=== PATIENT | male | born 1960 | race Two or more races ===

== ENCOUNTER 2021-12-24 13:00 | Outpatient (CLI) | payer MEDICARE, OTHER ==
[2021-12-24] MEDS ORDERED: COLLAGENASE 5 GM TUBE UD TP ONE (13:58)
== END 2021-12-24 23:59 | disposition home or self-care (01) ==
LOC: WOU 13:00
PROVIDERS: ATTEND Specialist
DX: E11.69 Type 2 diabetes mellitus with other specified complication (principal); E11.52 Type 2 diabetes mellitus with diabetic peripheral angiopathy with gangrene; E11.22 Type 2 diabetes mellitus with diabetic chronic kidney disease; I12.0 Hypertensive chronic kidney disease with stage 5 chronic kidney disease or end stage renal disease; M86.571 Other chronic hematogenous osteomyelitis, right ankle and foot; I96 Gangrene, not elsewhere classified; N18.6 End stage renal disease; Z99.2 Dependence on renal dialysis; Z87.891 Personal history of nicotine dependence; Z79.4 Long term (current) use of insulin; Z79.82 Long term (current) use of aspirin; Z79.899 Other long term (current) drug therapy
CPT/HCPCS: 73718; G0463

== ENCOUNTER 2021-12-24 14:04 | Outpatient (CLI) | payer MEDICARE, OTHER | END 2021-12-24 23:59 | disposition home or self-care (01) | LOC: MRI 14:04 | PROVIDERS: ATTEND Specialist | DX: Z75.3 Unavailability and inaccessibility of health-care facilities (principal) ==

== ENCOUNTER 2021-12-31 10:00 | Outpatient (CLI) | payer MEDICARE, OTHER | END 2021-12-31 23:59 | disposition home or self-care (01) | LOC: WOU 10:00 | PROVIDERS: ATTEND Specialist | DX: E11.51 Type 2 diabetes mellitus with diabetic peripheral angiopathy without gangrene (principal); E11.22 Type 2 diabetes mellitus with diabetic chronic kidney disease; I12.0 Hypertensive chronic kidney disease with stage 5 chronic kidney disease or end stage renal disease; Z99.2 Dependence on renal dialysis; Z87.891 Personal history of nicotine dependence; N18.6 End stage renal disease; Z79.4 Long term (current) use of insulin; Z79.899 Other long term (current) drug therapy; Z79.82 Long term (current) use of aspirin; I25.811 Atherosclerosis of native coronary artery of transplanted heart without angina pectoris; Z89.411 Acquired absence of right great toe; Z89.422 Acquired absence of other left toe(s); Z79.52 Long term (current) use of systemic steroids; Z94.1 Heart transplant status | CPT/HCPCS: G0463 ==

== ENCOUNTER 2022-01-21 12:55 | Outpatient (CLI) | payer MEDICARE, OTHER | END 2022-01-21 23:59 | disposition home or self-care (01) | LOC: WOU 12:55 | PROVIDERS: ATTEND Specialist | DX: E11.69 Type 2 diabetes mellitus with other specified complication (principal); M86.571 Other chronic hematogenous osteomyelitis, right ankle and foot; E11.52 Type 2 diabetes mellitus with diabetic peripheral angiopathy with gangrene; I96 Gangrene, not elsewhere classified; E11.22 Type 2 diabetes mellitus with diabetic chronic kidney disease; I12.0 Hypertensive chronic kidney disease with stage 5 chronic kidney disease or end stage renal disease; N18.6 End stage renal disease; Z99.2 Dependence on renal dialysis; Z87.891 Personal history of nicotine dependence; Z79.4 Long term (current) use of insulin; I25.811 Atherosclerosis of native coronary artery of transplanted heart without angina pectoris; Z94.1 Heart transplant status; Z79.899 Other long term (current) drug therapy; Z79.82 Long term (current) use of aspirin; Z89.422 Acquired absence of other left toe(s) | CPT/HCPCS: G0463 ==